=== PATIENT | female | born 1960 | race Caucasian/White ===

== ENCOUNTER 2016-12-02 13:25 | Emergency (ER) | payer MEDICAID, OTHER ==
[2016-12-02 13:59] VITALS: BP 144/83
--- NOTE | 2016-12-02 14:34 | UC ---
Skin Complaint HPI - HPI Summary HPI Summary: 56 y/o female with h/o L shoulder pain, rash since thursday. Patient states shoulder pain increased Thursday, took an ibuprofen gel tablet which was new for her, woke on thursday with rash over L chest, L arm, and back with increased shoulder pain. 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 no numbness, tinging. Rash red, painful, sometimes itchy. no drainage noted , no fever, chills, headache. no other new meds/ ? exposure on sat while at outdoor wedding. - History of Current Complaint Chief Complaint: UCSkin Time Seen by Provider: 12/02/16 14:02 Stated Complaint: SKIN COMPLAINT,LEFT SHOULDER PAIN Hx Obtained From: Patient Onset/Duration: Sudden Onset, Lasting Days, Still Present Skin Exposure Onset/Duration: Days Ago Onset Severity: Moderate Current Severity: Moderate - Allergy/Home Medications Allergies/Adverse Reactions: Allergies Allergy/AdvReac Type Severity Reaction Status Date / Time No Known Allergies Allergy Verified 12/02/16 13:59 Home Medications: Home Medications Aspirin EC Low Dose* [Ecotrin EC Low Dose 81 MG*] 81 mg PO DAILY 12/02/16 [ History Confirmed 12/02/16] Review of Systems Skin: Rash Musculoskeletal: Arthralgia, Decreased ROM, Myalgia All Other Systems Reviewed And Are Negative: Yes PMH/Surg Hx/FS Hx/Imm Hx Previously Healthy: Yes - Surgical History Surgical History: Yes Surgery Procedure, Year, and Place: carpal tunnel - Social History Alcohol Use: None Substance Use Type: None Smoking Status (MU): Former Smoker When Did the Patient Quit Smoking/Using Tobacco: 2010 Physical Exam Triage Information Reviewed: Yes Appearance: Well-Appearing, No Pain Distress, Well-Nourished Vital Signs: Initial Vital Signs Temp 97.8 F 12/02/16 13:55 Pulse 86 12/02/16 13:55 Resp 16 12/02/16 13:55 BP 144/83 12/02/16 13:55 Pulse Ox 98 12/02/16 13:55 Vital Signs Reviewed: Yes Neck: Positive: Supple, Nontender, No Lymphadenopathy Musculoskeletal: Positive: Other: - L shoulder- + neers sign, neg bear, belly third mate strength = b/l. pain with abd, flex >90. Neurological: Positive: Alert - sensation grossly intact b/l Skin: Positive: rashes - raised, erythematous rash in clusters over L chest, L upper posterior shoulder, L anterior forearm. non-blanching, tender to touch, increased over L chest. no drainage noted. no central clearing Course/Dx - Course Course Of Treatment: Pt. seen by Dr. Benton. dx'd with herpes zoster, valacyclovir tx given - Differential Diagnoses - Skin Complaint Differential Diagnoses: Drug Rash, Eczema, Lymphadenitis, Urticaria, Viral Exanthem - Diagnoses Provider Diagnoses: herpes zoster Discharge - Discharge Plan Condition: Good Disposition: HOME Prescriptions: ValACYclovir (*) [Valtrex 1 GM(*)] 1 gm PO TID #21 tab Patient Education Materials: Shingles (ED) Referrals: Bobbi Rodriguez MD [Primary Care Provider] - Additional Instructions: - Valacyclovir three times a day x 7 days - Avoid contact with immunocompromised people, women, newborns until rash subsided. - MOtrin/ tylenol as needed for pain
== END 2016-12-02 14:40 | disposition home or self-care (01) ==
LOC: UCCORT 13:25
DX: B02.9 Zoster without complications (principal); Z87.891 Personal history of nicotine dependence
CPT/HCPCS: 99212; G0463